=== PATIENT | male | born 1980 | race Caucasian/White ===

== ENCOUNTER 2019-12-17 12:37 | Emergency (ER) | payer MEDICAID, SELFPAY ==
[2019-12-17 12:43] VITALS: BP 133/84; PULSE 93; RESP 18; TEMP 36.6; O2SAT 99
--- NOTE | 2019-12-17 13:04 | W.ED.GENAD ---
Discharge Plan Disposition Patient Disposition: HOME Condition: Stable Discharge Details Clinical Impression: Knee pain, Cellulitis Primary Care Provider: Chinyere Arias ED Provider: Bonny Blackburn Home Meds and New Rx's Prescriptions: New doxycycline hyclate 100 mg capsule 100 mg PO BID Qty: 19 RF: 0 Discharge Instructions Instructions: Doxycycline (By mouth), Cellulitis (ED), Knee Pain (ED) Additional Instructions: Please return immediately to the emergency department if you develop any new or worsening symptoms, if your condition does not improve as expected, or if you become otherwise concerned. It is extremely important that you call soon as possible to make an appointment to be seen in follow-up for this visit by your primary care doctor, and also by orthopedics as scheduled. Referrals: Chinyere Arias [Primary Care Provider] - Shelton Patino MD [ [facility] STAFF PHYSICIAN] - Medical Decision Making Michele Persaud is a 39-year-old man without reported history of major medical problems who presented to the emergency department with left knee pain for the past 5 days after spending most of the day working on his hands and knees and sustaining a blister to the front of his knee. On exam patient is very well and nontoxic-appearing. There is a 3 mm healing ulceration over the proximal tibia with approximately 2 cm of surrounding erythema and induration. Tenderness to palpation over this area with light touch. No apparent foriegn body. No other rash or skin changes to the knee. No knee effusion, full range of motion of the knee without pain, no tenderness of the medial or lateral joint space, no tenderness of popliteal region, mild tenderness of the patella. Concern for likely cellulitis/abscess, possible small FB. Exam/history is not consistent with septic arthritis, inflammatory joint disease, Lyme disease, other systemic inflammatory or infectious process, fracture. Bedside ultrasound shows soft tissue edema, no clear foreign body, no fluid collection. I recommended x-ray to the patient as his PCP had scheduled him an appointment with orthopedic surgery for further eval on 01/01, and also for foreign body evaluation (unlikely to be seen on x-ray given patient was working on wooden deck). Patient declined x-ray at this time, is amenable to antibiotics (Rx doxycycline). I had a lengthy discussion with Patient regarding return to emergency department precautions, home care, and importance of outpatient follow-up. Pt verbalizes understanding of the plan and is amenable. Patient discharged to home with clear plan for outpatient follow-up. All questions were answered. Disposition decision was made weighing the risks and benefits of hospitalization versus outpatient treatment, the risk for further decompensation, and the patient's wishes. Medical Records Medical records reviewed: Yes I reviewed the patient's medical records. HPI General Mode of arrival: ambulatory. Date/Time Provider Initiated Documentation: 12/17/19 12:58. Limitations to Documentation: no limitations. Information obtained by: patient, RN notes reviewed and old records reviewed. HPI Narrative: Michele Persaud is a 39-year-old man without history of major medical problems presenting to the emergency department with left-sided knee pain. Patient reports that 5 days ago he was on his hands and knees for an extended period of time for work, and began to notice some pain in the front of his left knee at the end of the day. Patient reports that he did have a small blister over the front of his knee, and was concerned he might of had a splinter. Patient reports that he popped the blister and squeezed somewhat. States that he does not think that he has a splinter or foreign body. Patient reports that the pain at the front of his knee has gradually been increasing. His PCP sent him to the emergency department for evaluation. Patient reports that he has the most pain with palpation of the front of his knee or with his clothing rubbing against the front of his knee. He denies pain with weightbearing, with knee flexion, or with knee extension. He denies any other pain, fevers, rash, vomiting, diarrhea, numbness, weakness. Feels otherwise well in his usual state of health. Has been going about his daily activities as usual. Related Data Home Medications Medication Instructions Recorded Confirmed doxycycline hyclate 100 mg PO BID #19 cap 12/17/19 Previous Rx's Medication Instructions Recorded doxycycline hyclate 100 mg PO BID #19 cap 12/17/19 Allergies Allergy/AdvReac Type Severity Reaction Status Date / Time No Known Allergies Allergy Unverified 12/17/19 12:48 General Stated Complaint: Orthopedic DRISS: 3 Review of Systems Narrative: Constitutional: denies fevers Eyes: denies eye pain ENT: denies ear pain, dental pain, sore throat Cardiovascular: denies chest pain Respiratory: denies SOB, cough GI: denies abdominal pain, vomiting, diarrhea : denies flank pain MSK: Reports anterior knee pain, denies back pain, neck pain, myalgias, other arthralgias Skin: denies rash other than small area to the front of knee as per HPI Neuro: denies headaches, numbness, weakness PFSH Social History Smoking/Tobacco Use Status: Current every day Tobacco Type: smokeless tobacco Alcohol Intake: current Alcohol Intake frequency: holidays/special occasions only Drug use: Occasionally Substance use type: marijuana Do you feel safe at home: Yes Do you feel safe in your relationship?: Yes Exam Narrative Exam Narrative: Constitutional: well and sdn-ibatq-eiesiuure, pleasant, conversing normally HENT: head atraumatic/normocephalic/normal inspection, mucous membranes moist Eyes: conjunctiva normal, sclera normal, pupils 3mm b/l Neck: no stridor, normal ROM, trachea midline Resp: normal work of breathing, no respiratory distress Cardio: normal rate, normal rhythm, popliteal pulses intact Skin: warm, dry, normal color, no rash Neuro: alert, not altered, grossly non-focal, normal tone Ext: no edema, 3 mm healing ulceration over the proximal tibia with approximately 2 cm of surrounding erythema and induration, tenderness to palpation over this area with light touch, no apparent foriegn body, no other rash or skin changes to the knee. No knee effusion, full range of motion of the knee without pain, no tenderness of the medial or lateral joint space, no tenderness of popliteal region, mild tenderness of the patella. No posterior calf tenderness to palpation. Normal inspection the right knee, right knee with full range of motion without pain Psych: normal mood, normal affect, normal behavior Course Vital Signs Vital signs: Vital Signs Temperature 36.6 C 12/17/19 12:43 Pulse 93 H 12/17/19 12:43 Respiratory Rate 18 12/17/19 12:43 Blood Pressure 133/84 12/17/19 12:43 Pulse Oximetry 99 12/17/19 12:43 Temperature 36.6 C 12/17/19 12:43 Temperature Source Temporal Artery Scan 12/17/19 12:43 Pulse 93 H 12/17/19 12:43 Respiratory Rate 18 12/17/19 12:43 Respiratory Effort Non-Labored 12/17/19 12:49 Blood Pressure 133/84 12/17/19 12:43 Blood Pressure Position Sitting 12/17/19 12:43 Pulse Oximetry 99 12/17/19 12:43 Oxygen Delivery Method Room Air 12/17/19 12:43 Oxygen Flow Rate 0 12/17/19 12:43 Pain Level 7 12/17/19 12:43
[2019-12-17] MEDS: Doxycycline Hyclate 100 MG CAP PO (13:35)
== END 2019-12-17 13:43 | disposition home or self-care (01) ==
PROVIDERS: Emergency Provider Student in an Organized Health Care Education/Training Program; PCP Family Medicine
DX: L03.116 Cellulitis of left lower limb (principal); S80.222A Blister (nonthermal), left knee, initial encounter; X50.1XXA Overexertion from prolonged static or awkward postures, initial encounter; Y99.0 Civilian activity done for income or pay
CPT/HCPCS: 99283

== ENCOUNTER 2021-04-04 13:24 | Emergency (ER) | payer MEDICAID, SELFPAY ==
[2021-04-04 13:32] VITALS: BP 131/87; PULSE 87; RESP 16; TEMP 37.2; O2SAT 98
[2021-04-04 13:40] VITALS: RESP 16
--- NOTE | 2021-04-04 13:45 | DI.RAD_ITS ---
Exam(s) XR PORTABLE CHEST AP EXAM: XR PORTABLE CHEST AP CLINICAL HISTORY: Cough, + Covid TECHNIQUE: 2D digital imaging was performed. COMPARISON: No exams were available for comparison FINDINGS: LUNGS: Clear. No pleural abnormality seen. HEART: Normal. MEDIASTINUM: Normal. BONES: Unremarkable. IMPRESSION: No acute pulmonary findings. DATA REPOSITORY: RADIATION DOSE DELIVERED:
--- NOTE | 2021-04-04 13:55 | ED.GENADUL_ITS ---
Discharge Plan Disposition Patient Disposition: HOME Condition: Improving Discharge Details Clinical Impression: COVID-19 Primary Care Provider: Chinyere Arias ED Provider: Shelton Amin Home Meds and New Rx's Prescriptions: No Action No Known Home Meds RF: 0 Discharge Instructions Instructions: Viral Syndrome (ED), Pulse Oximetry (ED) Additional Instructions: Your chest x-ray today showed no evidence of pneumonia or other acute findings. Please maintain home isolation until results of your outpatient COVID test are available. You you likely do have COVID-19. Please drink plenty of fluids to stay hydrated. Allow for plenty of rest. You are given a finger pulse oximeter today. Monitor your pulse ox according to instructions. Please return to the emergency department if your oxygen drops below 90% consistently. Stand Alone Forms: PENDING COVID-19 TESTING Medical Decision Making This is a 40-year-old male who presents from home with approximately 5 days of cough, congestion, generalized body ache and subjective fever and chills. He reports to positive COVID test at home with 1 outpatient PCR test pending. He also reports positive sick contact with his growth has COVID. Patient is afebrile, interactive, no acute distress, oxygenating normally with normal vitals. Most consistent with COVID pneumonitis. Patient underwent screening chest x-ray to rule out focal consolidation or pneumothorax. . Chest x-ray without acute findings. Patient reassured. Will offer pulse oximeter for home. He understands home management as well as indications to seek reevaluation. He is stable for outpatient management. HPI General Mode of arrival: ambulatory . Date/Time Provider Initiated Documentation: 04/04/21 13:42 . Limitations to Documentation: no limitations . Information obtained by: patient . History of Present Illness 40 year old M presents to the emergency department with the chief complaint of Cough, feeling weak and body aches. Positive COVID test at home, described as moderate, and is localized to the chest. Patient reports no radiation. Patient started experiencing this day(s) and it has been intermittent. No relieving factors improve symptom(s), No exacerbating factors reported . Patient notes cough, fever/chills and shortness of breath; denies nausea/vomiting and syncope. Patient did receive the following treatments prior to arrival, none Related Data Home Medications Medication Instructions Recorded Confirmed Unknown [No Known Home Meds] 04/04/21 04/04/21 Allergies Allergy/AdvReac Type Severity Reaction Status Date / Time No Known Allergies Allergy Unverified 04/04/21 13:39 General Stated Complaint: GenMedical DRISS: 3 Review of Systems Narrative: 6 systems reviewed and otherwise negative PFSH All Active Problems (Updated 04/04/21 @ 14:42 by Shelton Amin MD) COVID-19 (Acute) Social History Smoking/Tobacco Use Status: Current every day Tobacco Type: cigarettes Smoking risk assessment performed?: Yes Alcohol Intake: current Alcohol Intake frequency: holidays/special occasions only Drug use: Daily Substance use type: marijuana Do you feel safe at home: Yes Do you feel safe in your relationship?: Yes Exam Narrative Exam Narrative: GEN: awake, alert, oriented 3. Pleasant, well groomed, interactive. HEAD: Normocephalic, atraumatic EYES: PERRL, EOMI NECK: Full ROM, no TANG, no menigismus CHEST/RESP: Nontender, clear to auscultation bilateral, no wheeze/rhonchi/rales CARDIOVASCULAR: RRR, no murmur, rub codie. 2+ Rad pulse bilateral ABDOMEN: Soft, nontender, no mass. +Bowel sounds EXT: Full ROM, no edema, no rash Neuro: Grossly normal neurologic exam, conversant, interactive. Psych: Speech fluent, thoughts congruent, affect normal Course Vital Signs Vital signs: Vital Signs Temperature 37.2 C 04/04/21 13:32 Pulse 87 04/04/21 13:32 Respiratory Rate 16 04/04/21 13:32 Blood Pressure 131/87 04/04/21 13:32 Pulse Oximetry 98 04/04/21 13:32 Temperature 37.2 C 04/04/21 13:32 Temperature Source Oral 04/04/21 13:32 Pulse 87 04/04/21 13:32 Respiratory Rate 16 04/04/21 13:40 Respiratory Effort Non-Labored 04/04/21 13:40 Respiratory Depth Normal 04/04/21 13:40 Respiratory Pattern Normal 04/04/21 13:40 Blood Pressure 131/87 04/04/21 13:32 Blood Pressure Position Sitting 04/04/21 13:32 Pulse Oximetry 98 04/04/21 13:32 Oxygen Delivery Method Room Air 04/04/21 13:32 Oxygen Flow Rate 0 04/04/21 13:32 Pain Level 0 04/04/21 13:32
--- NOTE | 2021-04-04 14:35 | DI.VRAD_ITS ---
PROCEDURE INFORMATION: Exam: XR Chest Exam date and time: 04/04/2021 1:56 PM Age: 40 years old Clinical indication: Cough and other: Covid + TECHNIQUE: Imaging protocol: XR of the chest. Views: 1 view. COMPARISON: No relevant prior studies available. FINDINGS: Airway: Patent Lungs: Unremarkable. No consolidation. Pleural spaces: Unremarkable. No pleural effusion. No pneumothorax. Heart/Mediastinum: Unremarkable. No cardiomegaly. Bones/joints: No acute skeletal abnormality or aggressive osseous lesion. IMPRESSION: No acute findings. Dictated and Authenticated by: Kenan Umana MD. Ordering:APOLONIA Peoples MD
[2021-04-04 15:01] VITALS: PULSE 61; RESP 15; O2SAT 98
== END 2021-04-04 14:59 | disposition home or self-care (01) ==
PROVIDERS: Emergency Provider Emergency Medicine; PCP Family Medicine
DX: U07.1 COVID-19 (principal); R05.1 Acute cough; R50.9 Fever, unspecified; R53.1 Weakness; F17.210 Nicotine dependence, cigarettes, uncomplicated
CPT/HCPCS: 99283; 71045

== ENCOUNTER 2022-02-04 08:49 | Emergency (ER) | payer MEDICAID, SELFPAY ==
[2022-02-04 08:54] VITALS: BP 137/91; PULSE 82; RESP 14; TEMP 36.6; O2SAT 99
--- NOTE | 2022-02-04 09:07 | ED.GENADUL_ITS ---
Discharge Plan Disposition Patient Disposition: HOME Condition: Stable Discharge Details Clinical Impression: Paronychia of finger of left hand Primary Care Provider: Chinyere Arias ED Provider: Janey Baxter Home Meds and New Rx's Prescriptions: New cephalexin 500 mg tablet 500 mg PO BID 7 Days Qty: 14 0RF Discharge Instructions Instructions: Paronychia (ED) Additional Instructions: Warm soapy water soaks a day for the next 3-5 days. Take antibiotic as directed with yogurt or probiotic as directed. Please return for any worsening signs of infection including increased redness, swelling inability to bend your finger or red streaks. Follow up with primary care provider in 3-5 days. Return to ED sooner if any worsening or concerns. Increase oral fluids. Please take Tylenol or Ibuprofen with food every 4-6 hours as needed for pain and swelling. Referrals: Chinyere Arias [Primary Care Provider] - 5 days Medical Decision Making 41-year-old male presents to the ER with a left index finger paronychia. 4 sided ring digital block performed anesthesia was achieved. Small incision was made with an 11 blade and small amount of purulent and bloody drainage was expressed. Discussed home care including warm soapy water soaks. Patient was given cephalexin here in the ER and a prescription for cephalexin x7 days. I did discuss antibiotic ointment for the first couple of days. Discussed strict return instructions. This text was generated using [employer] dictation system, please disregard any o ddities of phrase or misspellings. HPI General Mode of arrival: ambulatory . Date/Time Provider Initiated Documentation: 02/04/22 09:03 . Limitations to Documentation: no limitations . Information obtained by: patient, RN notes reviewed and old records reviewed . HPI Narrative: 41-year-old male presents to the ER with a left index finger nailbed infection which he reports is gotten worse for the last 4 to 5 days. He reports the last couple weeks he has noticed a little infection. He has been placing antibiotic ointment on it with little to no relief. He has full range of motion noted to his finger. He reports that he is up-to-date on his tetanus no other associated symptoms or complaints at this time. According to our records last T-dap was 2019. Related Data Home Medications Medication Instructions Recorded Confirmed cephalexin 500 mg tablet 500 mg PO BID 7 days #14 tabs 02/04/22 Previous Rx's Medication Instructions Recorded cephalexin 500 mg tablet 500 mg PO BID 7 days #14 tabs 02/04/22 Allergies Allergy/AdvReac Type Severity Reaction Status Date / Time No Known Allergies Allergy Unverified 02/04/22 08:59 General Stated Complaint: GenMedical DRISS: 4 Review of Systems Integumentary/Breasts Skin/Breast: Reports as per HPI, Reports skin pain and Reports skin swelling PFSH All Active Problems (Updated 02/04/22 @ 09:31 by Janey Baxter NP) COVID-19 (Acute) Paronychia of finger of left hand (Acute) Social History Smoking/Tobacco Use Status: Current every day Tobacco Type: cigarettes Smoking risk assessment performed?: Yes Alcohol Intake: current Alcohol Intake frequency: holidays/special occasions only Drug use: Daily Substance use type: marijuana Do you feel safe at home: Yes Do you feel safe in your relationship?: Yes Exam Extrem Left upper extremity: hand Details: tenderness and swelling Hand/finger images: 1. Erythema swelling and tenderness apparent paronychia Course Vital Signs Vital signs: Vital Signs Temperature 36.6 C 02/04/22 08:54 Pulse 82 02/04/22 08:54 Respiratory Rate 14 02/04/22 08:54 Blood Pressure 137/91 H 02/04/22 08:54 Pulse Oximetry 99 02/04/22 08:54 Temperature 36.6 C 02/04/22 08:54 Temperature Source Oral 02/04/22 08:54 Pulse 82 02/04/22 08:54 Respiratory Rate 14 02/04/22 08:54 Blood Pressure 137/91 H 02/04/22 08:54 Blood Pressure Position Sitting 02/04/22 08:54 Pulse Oximetry 99 02/04/22 08:54 Oxygen Delivery Method Room Air 02/04/22 08:54 Oxygen Flow Rate 0 02/04/22 08:54 Pain Level 6 02/04/22 08:54 Comment 02/04/22 08:54 Procedures Abscess I/D Site: Hand Side (if applicable): Left Local Anesthetic: Lidocaine 2%, Bupivicaine 0.5% and With Bicarb Amount of anesthesia used (mL): 3 Technique: Incised with #11 Blade Amount of fluid expressed (mL): 3 Irrigation: No Packing used?: None Nerve Block Nerve Block 1: Time out performed: No Local Anesthetic: Lidocaine 2%, Bupivicaine 0.5% and with Bicarb Amount of anesthesia used (mL): 3 Side: left Nerve Blocks: digital Procedure Successful: Yes Patient Tolerated Procedure: well Complications: none
[2022-02-04] MEDS: Cephalexin 500 MG CAP PO (09:41)
== END 2022-02-04 09:47 | disposition home or self-care (01) ==
PROVIDERS: Emergency Provider Registered Nurse Emergency; PCP Family Medicine
DX: L03.012 Cellulitis of left finger (principal)
CPT/HCPCS: 10060

== ENCOUNTER 2022-06-28 13:13 | Outpatient (CLI) | payer MEDICAID, SELFPAY ==
--- NOTE | 2022-06-28 15:30 | DI.MRI_ITS ---
Exam(s) MR CERVICAL SPINE WO EXAM: MR CERVICAL SPINE WO CLINICAL HISTORY: LT CERVICAL RADICULOPATHY, M54.12, ACUTE NECK PAIN, LT ARM WEAKNESS TECHNIQUE: Multiplanar multisequence MRI of the cervical spine was performed without intravenous con trast. COMPARISON: No exams were available for comparison FINDINGS: CERVICOMEDULLARY JUNCTION: Intact with no evidence of cerebellar tonsillar ectopia. No obvious abnor mality of the odontoid process. No evidence of Chiari 1 malformation. CERVICAL SPINAL CORD: There is no abnormal signal in the cervical spinal cord and no evidence of foca l cord atrophy nor focal cord swelling. OSSEOUS:There are no cervical fractures evident. No significant osseous lesions in the cervical vert ebrae. There is mild straightening of the cervical curvature. INDIVIDUAL LEVELS: C2-3: No disc herniation nor central canal stenosis. No foraminal stenosis. No facet arthropathy. C3-4: No disc herniation nor central canal stenosis.No facet arthropathy. No foraminal stenosis. C4-5: Mild decreased disc height. Mild symmetrical annular bulging. No prominent disc herniation. Central canal dimensions are within normal limits. Mild degenerative changes in the left facet joint . Right facet joint unremarkable. No foraminal stenosis on either side. C5-6: Preserved disc height and signal. Mild annular bulging but without a dominant disc herniation or central canal stenosis. No significant facet arthropathy. No significant foraminal stenosis at t his level. C6-7: Decreased disc height and signal. Anterior osseous lipping. There is central subligamentous a nnular bulging at this level which indents the thecal sac but not the spinal cord. There are bilater al Luschka joint osteophytes at this level. No significant facet arthropathy. There is foraminal st enosis on the left side at this level. Milder foraminal stenosis on the right side. C7-T1: No disc herniation nor central canal stenosis. No facet arthropathy.No foraminal stenosis. IMPRESSION: 1. At C6-7 level there is an element of chronic degenerative disc disease with disc space narrowing, annular bulging, and small bilateral Luschka joint osteophytes, slightly more prominent on the left s sergio. There is an element of left-sided foraminal stenosis at this level. Central canal dimensions l ower normal. 2. Minimal findings at the C4-5 and other levels as described above. 3. There is no abnormal signal in the cervical spinal cord. No evidence of focal spinal cord swellin g nor focal cord atrophy. DATA REPOSITORY:
== END 2022-06-28 13:33 ==
LOC: DI 13:17
PROVIDERS: PCP Family Medicine; Visit Provider Family Medicine
DX: M54.12 Radiculopathy, cervical region (principal); M79.602 Pain in left arm; M50.123 Cervical disc disorder at C6-C7 level with radiculopathy; M47.22 Other spondylosis with radiculopathy, cervical region
CPT/HCPCS: 72141

== ENCOUNTER → 2022-11-09 01:44 | Outpatient (CLI) | payer MEDICAID, SELFPAY ==
--- NOTE | 2022-11-09 09:10 | DI.RAD_ITS ---
Exam(s) XR CERVICAL SP THAKKAR TRAUMA 2-3V EXAM: XR CERVICAL SP THAKKAR TRAUMA 2-3V CLINICAL HISTORY: CERVICAL DISC DISORDER C6-7 LEVEL WITH RADICULOPATHY, M50.123, LT ARM PAIN. TECHNIQUE: 2D digital imaging was performed. Three views, AP, lateral views in flexion and extensio n. COMPARISON: No exams were available for comparison FINDINGS: BONES: No fracture or destructive lesion. Vertebral bodies are unremarkable. DISKS: Mild narrowing of the C6-7 disc space and small endplate osteophytes. The remaining intervert ebral disc spaces are maintained. ALIGNMENT: Cervical spinal alignment is within normal limits. The odontoid and atlantoaxial articulat ions are normal. There is no subluxation with flexion or extension SOFT TISSUE: Normal. The lung apices are clear. IMPRESSION: Unremarkable mild degenerative changes at C6-7. DATA REPOSITORY: RADIATION DOSE DELIVERED:
== END ==
PROVIDERS: PCP Nurse Practitioner Family; Visit Provider Physician Assistant
DX: M50.123 Cervical disc disorder at C6-C7 level with radiculopathy (principal)
CPT/HCPCS: 72040

== ENCOUNTER 2023-04-07 13:58 | Outpatient (REF) | payer MEDICAID, SELFPAY ==
[2023-04-08 19:47] LABS: Hepatitis C Ab w Rflx HCV PCR Negative (Negative)
[2023-04-08 19:51] LABS: HIV-1/2 Ag & Ab Screen Negative (Negative)
[2023-04-09 13:44] LABS: Chlamydia Result Negative (Negative); GC Result Negative (Negative)
[2023-04-11 12:14] LABS: Syphilis Serology (RPR) Negative (Negative)
== END 2023-04-07 13:59 | disposition home or self-care (01) ==
LOC: NCHCN 13:58
PROVIDERS: PCP Nurse Practitioner Family; Visit Provider Nurse Practitioner Family
DX: A64 Unspecified sexually transmitted disease (principal)
CPT/HCPCS: 86803; 87389; 87491; 87591; 86592

== ENCOUNTER 2023-11-18 07:10 | Emergency (ER) | payer MEDICAID, SELFPAY ==
[2023-11-18 07:17] VITALS: BP 116/79; PULSE 101; RESP 18; TEMP 36.8; O2SAT 99
[2023-11-18] MEDS: ALPRAZolam 0.25 MG TAB 1 MG PO (08:29)
[2023-11-18] MEDS: Nicotine 21 MG/24 HR PATCH (09:02)
[2023-11-18 09:17] LABS: *AMPHETAMINES SCREEN URINE Negative (Negative); *BARBITURATES SCREEN URINE Negative (Negative); *BENZODIAZEPINES SCREEN URINE Negative (Negative); Cannabinoids THC Positive (Negative); Cocaine Screen,Urine Negative (Negative); METHADONE URINE SCREEN Negative (Negative); OPIATES URINE SCREEN Negative (Negative)
[2023-11-18 09:18] LABS: Tricyclic Antidepressants Negative (Negative)
--- NOTE | 2023-11-18 11:22 | W.ED.GENAD ---
Discharge Plan Disposition Patient Disposition: Psychiatric Hospital/Unit Specific Psychiatric Facility: [facility] Condition: Stable Discharge Details Clinical Impression: Depression, Anxiety, Depression with suicidal ideation Primary Care Provider: Ligia Rangel ED Provider: Lai Truong [facility] General Date/Time Provider Initiated Documentation: 11/18/23 07:58. Limitations to Documentation: no limitations. Information obtained by: patient. HPI Narrative: 43-year-old gentleman with past medical history of anxiety and depression presents for evaluation for worsening symptoms. Patient reports that over the last 3 months he has had worsening depression, anxiety. He states that he is now taking it out on his son and reports that he yelled at him yesterday which is very atypical of his behavior. He has been having suicidal thoughts, his mother who is present with him was concerned enough yesterday to call out [facility] crisis workers to the home who evaluated the patient. Guns were removed. The patient is very tearful and says he just cannot go on like this. He says this is awful feeling this way. He is hoping to get help. He denies any drugs or alcohol use. He states has been compliant with his prescriptions provided by his counselor at [facility]. Related Data Allergies Allergy/AdvReac Type Severity Reaction Status Date / Time No Known Allergies Allergy Unverified 02/04/22 08:59 General Stated Complaint: PsychEval DRISS: 2 Exam Narrative Exam Narrative: Review of Systems: All systems reviewed & are unremarkable except as noted in HPI and below Well-developed NCAT PERRL, normal conjunctiva RRR Unlabored respiratory effort Nondistended abdomen + Tearful, crying quite a bit Course Vital Signs Vital signs: Vital Signs Temperature 36.8 C 11/18/23 07:17 Pulse 101 H 11/18/23 07:17 Respiratory Rate 18 11/18/23 07:17 Blood Pressure 116/79 11/18/23 07:17 Pulse Oximetry 99 11/18/23 07:17 Temperature 36.8 C 11/18/23 07:17 Pulse 101 H 11/18/23 07:17 Respiratory Rate 18 11/18/23 07:17 Respiratory Effort Normal, Non-Labored 11/18/23 07:24 Blood Pressure 116/79 11/18/23 07:17 Pulse Oximetry 99 11/18/23 07:17 Lab/Test Results Lab/Test Results: Laboratory Tests Range/Units 11/18/23 08:55 Urine Opiates Screen (Negative) Negative Urine Methadone Screen (Negative) Negative Ur Barbiturates Screen (Negative) Negative Ur Tricyclics Screen (Negative) Negative Ur Amphetamines Screen (Negative) Negative U Benzodiazepines Scrn (Negative) Negative Urine Cocaine Screen (Negative) Negative Ur THC Screen (Negative) Positive A Medical Decision Making Evaluation of depression and suicidality. Patient arrives very tearful. There is no concurrent alcohol or drug abuse. Has been following with [facility] for counseling and medication management. He did interact with crisis workers yesterday who did encourage him to come to the hospital. He is seeking help and requesting voluntary inpatient placement. He has been medically cleared by the smart form. He was given a Xanax to help with anxiety here in the emergency department. He was evaluated by [facility] and referrals have been sent. Patient was accepted by [facility]. Doc to doc given to Ciera Rosenberg at [facility]. Ambulance transfer has been arranged. Quality:[facility] Health Related Social Needs: No Data to Display [facility] All Active Problems Depression with suicidal ideation (Acute) Anxiety (Chronic) Depression (Chronic) COVID-19 (Acute) Social History Smoking/Tobacco Use Status: Current every day Tobacco Type: cigarettes Smoking risk assessment performed?: Yes Alcohol Intake: current Alcohol Intake frequency: holidays/special occasions only Drug use: Daily Substance use type: marijuana Do you feel safe at home: Yes Do you feel safe in your relationship?: Yes PAWSS Have you Been Recently Intoxicated or Drunk Within the Last 30 days?: No Have you Ever Experienced Previous Episodes of Alcohol Withdrawal?: No Have you ever Experienced Withdrawal Seizures?: No Have you ever Experienced Delirium Tremens(DT)s?: No Have you ever undergone Alcohol Rehabilitation Treatment (i.e, inpt ot outpatient treatment programs)?: No Have you ever Experienced Blackouts?: No Have you ever Combined Alcohol with other Downers within the last 90 days?: No Have you ever Combined Alcohol with any other Substance of Abuse during the last 90 days?: No Result: 0
== END 2023-11-18 11:42 ==
LOC: ER 10:47
PROVIDERS: Emergency Provider Emergency Medicine; PCP Nurse Practitioner Family
DX: R45.851 Suicidal ideations (principal); F32.A Depression, unspecified; F41.9 Anxiety disorder, unspecified; F17.210 Nicotine dependence, cigarettes, uncomplicated
CPT/HCPCS: 80307; 99285; 99283

== ENCOUNTER 2024-07-10 15:50 | Outpatient (REF) | payer MEDICAID, SELFPAY ==
[2024-07-10 15:22] LABS: Abs Immature Grans 0.03 10^3/uL (0.0-0.06); Absolute Basophil Count 0.13 10^3/uL (0.0-0.2); Absolute Lymphocyte Count 3.06 10^3/uL (1.2-3.4); Absolute Monocyte Count 0.96 10^3/uL (0.1-0.8); Basophils % 1.2 %; Eosinophils % 2.8 %; HCT 43.2 % (40.0-50.0); HGB 14.8 g/dL (13.5-17.5); Immature Grans % 0.3 %; Lymphocytes % 28.3 %; MCH 29.2 pg (27.0-33.0); MCHC 34.3 % (32.0-36.0); MCV 85 fL (80-95); MPV 9.6 fL (8.0-11.0); Monocytes % 8.9 %; Neutrophils % 58.5 %; Platelet Count 426 10^3/uL (130-400); RBC 5.07 10^6/uL (4.36-5.78); RDW 12.5 % (11.8-14.1); RDW-SD 38.6 fL; WBC 10.83 10^3/uL (4.4-10.8)
[2024-07-10 15:27] LABS: Absolute Neutrophil Count 6.34 10^3/uL (1.2-6.7)
[2024-07-10 15:55] LABS: ALT 30 U/L (16-63); AST 19 U/L (15-37); Albumin 4.1 g/dL (3.4-5.0); Alkaline Phosphatase 87 U/L (46-116); Anion Gap 8.6 mmol/L (3-11); BUN 9 mg/dL (7-18); Bilirubin, Total 0.2 mg/dL (0.2-1.0); CO2 27.4 mmol/L (21.0-32.0); Calcium 9.4 mg/dL (8.5-10.1); Calculated LDL 171 mg/dL (<100); Chloride 108 mmol/L (98-107); Cholesterol 248 mg/dL (<200); Estimated GFR 95.77 (mL/min/1.73m2); Glucose 110 mg/dL (74-106); HDL Cholesterol 47 mg/dL (>or=40); Potassium 4.2 mmol/L (3.5-5.1); Sodium 144 mmol/L (136-145); Total Protein 7.2 g/dL (6.4-8.2); Triglyceride 153 mg/dL (<150)
== END 2024-07-10 15:51 | disposition home or self-care (01) ==
LOC: NCHCN 15:50
PROVIDERS: PCP Nurse Practitioner Family; Visit Provider Family Medicine
DX: Z51.81 Encounter for therapeutic drug level monitoring (principal)
CPT/HCPCS: 80053; 80061; 85025

== ENCOUNTER 2025-02-07 16:54 | Outpatient (REF) | payer MEDICAID, SELFPAY ==
[2025-02-07 20:57] LABS: Cholesterol 223 mg/dL (<200); HDL Cholesterol 47 mg/dL (>40)
== END 2025-02-07 16:55 | disposition home or self-care (01) ==
LOC: NCHCN 16:54
PROVIDERS: PCP Nurse Practitioner Family; Visit Provider Family Medicine
DX: E78.5 Hyperlipidemia, unspecified (principal)
CPT/HCPCS: 80061